=== PATIENT | male | born 1995 | race Two or more races ===

== ENCOUNTER 2017-02-20 21:00 | Emergency (ER) | payer SELFPAY ==
--- NOTE | ~2017-02-20 | CR127 ---
[facility] A Service of [facility] RADIOLOGY TEXT RESULTS PATIENT: DALE CAROLINA LOCATION: [place] : [birth year] UNIT #: [id number] AGE: [address]: VIET ACEVEDO APRN SEX: M ORDER DR: [id number] [facility] [address] [place], [place] [address] [id number] E MR#: [id number] Acc #: [id number] NAME: DALE CAROLINA : 1995 SEX: M STUDY DATE/TIME: 02/20/2017 21:16 UNIT: CFT[facility] ROOM: STUDY DESCRIPTION: CR Foot Complete Min 3 View Rt Attending Physician: Viet Acevedo Aprn Ordering Physician: Viet Acevedo Aprn MEDICAL IMAGING REPORT This report is preliminary unless electronic signature is present EXAM Foot right, 3 views HISTORY Lateral ankle pain, foot pain after soccer injury today. FINDINGS Three views of the right foot are reviewed. I believe there is a small accessory ossification center at the lateral aspect of the cuboid bone. No definite acute fracture, dislocation or radiopaque foreign body. Some soft tissue swelling is seen on the lateral view anterior and posterior to the tibiotalar joint. IMPRESSION There is what is probably a small accessory ossification or even a dystrophic calcification seen lateral to the cuboid bone. It appears fairly well-corticated and does not appear to represent acute fracture. No dislocation or acute fracture is identified. Some soft tissue swelling is seen both anterior and posterior to the tibiotalar joint. Dictated by... Karla Young M.D. THIS IS AN ELECTRONICALLY VERIFIED REPORT Karla Young M.D. at 02/20/2017 11:10 PM SAC/pcl TD: 02/20/2017 22:52 JOB #: [id number] MEDICAL IMAGING REPORT [facility] A Service of [facility] RADIOLOGY TEXT RESULTS PATIENT: DALE CAROLINA LOCATION: [place] : [birth year] UNIT #: [id number] AGE: [address]: VIET ACEVEDO APRN SEX: M ORDER DR: Page 1 of 1 COPY
--- NOTE | ~2017-02-20 | CR21 ---
[facility] A Service of [facility] RADIOLOGY TEXT RESULTS PATIENT: DALE CAROLINA LOCATION: CFTX : [birth year] UNIT #: [id number] AGE: [address]: VIET ACEVEDO APRN SEX: M ORDER DR: [id number] [facility] [address] [place], [place] [address] [id number] E MR#: [id number] Acc #: [id number] NAME: DALE CAROLINA : 1995 SEX: M STUDY DATE/TIME: 02/20/2017 21:15 UNIT: [facility] ROOM: STUDY DESCRIPTION: CR Ankle Min 3 Views Rt Attending Physician: Viet Acevedo Aprn Ordering Physician: Viet Acevedo Aprn Primary Care Physician: Primary Care Physician No MEDICAL IMAGING REPORT This report is preliminary unless electronic signature is present EXAM Right ankle HISTORY Right ankle and foot pain mainly laterally, started today after soccer. COMMENT 3 views of the right ankle are reviewed. No acute fracture, dislocation or radiopaque foreign body is suspected. Mild soft tissue swelling laterally. IMPRESSION Mild lateral soft tissue swelling. No acute fracture or dislocation suspected. Dictated by... Karla Young M.D. THIS IS AN ELECTRONICALLY VERIFIED REPORT Karla Young M.D. at 02/20/2017 11:10 PM ANDREA/michael TD: 02/20/2017 22:56 JOB #: [id number] MEDICAL IMAGING REPORT Page 1 of 1 COPY
== END 2017-02-20 22:55 | disposition home or self-care (01) ==
LOC: CFTX 21:00
DX: M89.8X7 Other specified disorders of bone, ankle and foot (principal); W51.XXXA Accidental striking against or bumped into by another person, initial encounter; Y93.66 Activity, soccer; Y92.830 Public park as the place of occurrence of the external cause
CPT/HCPCS: 29405; 73610; 73630; 99283